=== PATIENT | male | born 1980 | race Caucasian/White ===

== ENCOUNTER → 2020-06-09 15:11 | Outpatient (BNVA) | payer OTHER, SELFPAY | PROVIDERS: Visit Provider Emergency Medicine | DX: Z11.59 Encounter for screening for other viral diseases (principal) | CPT/HCPCS: 87635 ==

== ENCOUNTER 2022-05-24 18:47 | Inpatient (IN) | payer OTHER, SELFPAY ==
[2022-05-24] VITALS (13 sets, daily range): BP systolic 95–186; BP diastolic 55–150; PULSE 86–98; RESP 13–28; TEMP 35.9–36.4; O2SAT 93–100; BMI 28.5
--- NOTE | 2022-05-24 19:05 | ED_ITS ---
HPI - Abdominal Pain General: Chief Complaint: Abdominal Pain Stated Complaint: vomiting blood and syncope Time Seen by Provider: 05/24/22 18:55 Source: patient Mode of arrival: ambulatory Limitations: no limitations History of Present Illness: 41-year-old male who states he is at work and today and then vomited up a large amount of blood and had multiple large black tarry stools and had a syncopal event. Patient came straight here he is lightheaded and diaphoretic he is hypotensive. He denies any history of GI bleed he states he takes multiple Excedrin a day he is a nondrinker no history of cirrhosis denies any chest pain or fever. Associated Symptoms: Reports hematochezia, hematemesis and melena; Denies chills, dysuria and fever(s) Review of Systems Const: Denies: fever(s), chills, body aches or change in appetite Eyes: Denies: blurry vision or eye discomfort ENMT: Denies: throat pain or dental pain Card: Denies: chest pain Resp: Denies: dyspnea GI: Reports: abdominal pain, hematemesis, hematochezia and melena : Denies: dysuria Musc: Denies: neck pain or back pain Skin/Breast: Denies: rash Neuro: Denies: headache(s) Psych: Denies: depression Ilia/Lymph: Denies: easy bruising All/Imm: Denies: urticaria PFSH ED PFSH: Medical History (Updated 05/24/22 @ 19:47 by Leonard Zepeda MD) No pertinent past medical history Social History Smoking and tobacco status: current every day smoker cigarettes Packs smoked per day: 2 Alcohol intake: never Physical Exam Const: COMMON NORMALS: patient oriented x3 GENERAL APPEARANCE: ill appearing and frail appearing HENMT: COMMON NORMALS: normocephalic and atraumatic HEAD & SCALP: normocephalic and atraumatic Eye: COMMON NORMALS: Equal, round and reactive pupils present and EOMs intact bilaterally PUPIL: Yes Equal, round and reactive pupils present Neck/C-Spine: COMMON NORMALS: full ROM and supple Chest: COMMONS NORMALS: normal inspection of the chest and normal palpation of entire chest wall Resp: COMMON NORMALS: normal respiratory effort, No retractions, No use of accessory muscles and clear to auscultation bilaterally AUSCULTATION: clear to auscultation bilaterally Cardio: COMMON NORMALS: regular rate, regular rhythm and No murmurs present (Cardio) RATE: regular rate RHYTHM: regular rhythm GI: COMMON NORMALS: Normal to inspection, nondistended, normoactive bowel sounds present, Soft to palpation, non-tender and no masses PALPATION: Yes Soft to palpation OTHER: Large amount of black tarry stool Hemoccult positive Extremity: COMMON NORMALS: normal to inspection and full ROM Neuro: COMMON NORMALS: patient oriented x3, moves all extremities and no focal motor deficits Psych: COMMON NORMALS: mental status grossly normal, Normal thought process present and cooperative THOUGHT PROCESS: Normal thought process present Skin: COMMON NORMALS: no rashes or lesions noted and no wounds GENERAL SKIN EXAM: no rashes or lesions noted Course Vital Signs: Vital signs: Vital Signs Temperature 96.7 F L 05/24/22 19:35 Pulse Rate 90 05/24/22 19:35 Respiratory Rate 14 05/24/22 19:35 Blood Pressure 107/70 05/24/22 19:35 Pulse Oximetry 99 05/24/22 19:35 Oxygen Delivery Me thod 05/24/22 19:35 MDM - Abdominal Pain Medical Decision Making Patient presents for an upper GI bleed he did not vomit blood has a large amount of melena here patient is originally hypotensive and passed out his blood pressure here is improved after fluids along with blood products. I did speak to surgeon on-call who is going to take patient to the GI lab and then will admit to ICU. Lab Data : 05/24/22 19:08 05/24/22 19:08 Labs/Radiology: Laboratory Results WBC 14.5 10^3/uL (4.0-10.0) H 05/24/22 19:08 RBC 4.62 10^6/uL (4.1-5.3) 05/24/22 19:08 Hgb 13.7 g/dL (11.7-16.6) 05/24/22 19:08 Hct 42.4 % (42.0-52.0) 05/24/22 19:08 MCV 91.8 fl (80-94) 05/24/22 19:08 MCH 29.7 pg (28.0-34.0) 05/24/22 19:08 MCHC 32.3 g/dL (30.0-36.0) 05/24/22 19:08 RDW 12.8 % (12.1-15.1) 05/24/22 19:08 Plt Count 400 10^3/cmm (130-400) 05/24/22 19:08 MPV 9.9 fL (7.4-10.4) 05/24/22 19:08 Neut % (Auto) 75.8 % 05/24/22 19:08 Lymph % (Auto) 14.7 % 05/24/22 19:08 Milam % (Auto) 6.5 % 05/24/22 19:08 Eos % (Auto) 1.2 % 05/24/22 19:08 Baso % (Auto) 0.8 % 05/24/22 19:08 Neut # (Auto) 11.02 10^3/uL (1.8-7.7) H 05/24/22 19:08 Lymph # (Auto) 2.1 10^3/uL (0.8-4.8) 05/24/22 19:08 Milam # (Auto) 0.9 10^3/uL (0.2-0.9) 05/24/22 19:08 Eos # (Auto) 0.2 10^3/uL (0.0-0.8) 05/24/22 19:08 Baso # (Auto) 0.1 10^3/uL (0.0-0.1) 05/24/22 19:08 Nucleated RBC % (auto) 0 % 05/24/22 19:08 Nucleated RBCs # 0.0 /100WBC 05/24/22 19:08 PT 13.70 SECONDS (12.1-14.9) 05/24/22 19:08 INR 1.02 (0.8-1.2) 05/24/22 19:08 Sodium 139 mmol/L (136-145) 05/24/22 19:08 Potassium 4.4 mmol/L (3.5-5.1) 05/24/22 19:08 Chloride 101 mmol/L (98-107) 05/24/22 19:08 Carbon Dioxide 24 mmol/L (22-29) 05/24/22 19:08 Anion Gap 18.4 (5-19) 05/24/22 19:08 BUN 32 mg/dL (6-20) H 05/24/22 19:08 Creatinine 1.3 mg/dL (0.7-1.2) H 05/24/22 19:08 GFR Calculation 60.8 mL/min (90-130) L 05/24/22 19:08 Glucose 150 mg/dL (65-115) H 05/24/22 19:08 Calculated Osmolality 298 mOsm/kg (285-295) H 05/24/22 19:08 Calcium 10.9 mg/dL (8.5-10.5) H 05/24/22 19:08 Total Bilirubin 0.3 mg/dL (0.15-1.2) 05/24/22 19:08 AST 13 U/L (0-40) 05/24/22 19:08 ALT 9 U/L (0-41) 05/24/22 19:08 Alkaline Phosphatase 74 U/L (40-130) 05/24/22 19:08 Total Protein 7.2 g/dL (6.6-8.7) 05/24/22 19:08 Albumin 4.0 g/dL (3.5-5.2) 05/24/22 19:08 Globulin 3.2 g/dL (1.3-4.6) 05/24/22 19:08 Lipase 25 U/L (13-60) 05/24/22 19:08 Critical Care Time Critical Care Time: Critical Care Time: Yes Total Critical Care Time: 40 Attestation: The high probability of a clinically significant, sudden or life threatening deterioration of the patient's gi system(s) required my full and direct attention, intervention and personal management. The critical care time is as shown. 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
--- NOTE | 2022-05-24 19:08 | ECG_ITS ---
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 Measurements Intervals [place] Rate: 92 P: 23 MT: 146 QRS: 70 QRSD: 86 T: 56 QT: 335 QTc: 415 Interpretive Statements SINUS RHYTHM No previous ECG available for comparison Electronically Signed On 05-25-2022 5:25:24 MEASUREMENT DEPARTMENT CHIEF CLERK by Catherine Garcia M.D. [id number]
[2022-05-24] MEDS: pantoprazole 40 mg SDV 80 MG IVP (19:12)
[2022-05-24] MEDS: sodium chloride 0.9% 1,000 ML 999 ML IV (19:12)
[2022-05-24 19:26] LABS: Basophils # 0.1 10^3/uL (0.0-0.1); Basophils % 0.8 %; Eosinophils # 0.2 10^3/uL (0.0-0.8); Eosinophils % 1.2 %; Hematocrit 42.4 % (42.0-52.0); Hemoglobin 13.7 g/dL (11.7-16.6); Lymphocytes # 2.1 10^3/uL (0.8-4.8); Lymphocytes % 14.7 %; Mean Corpuscular HGB Conc 32.3 g/dL (30.0-36.0); Mean Corpuscular Hemoglobin 29.7 pg (28.0-34.0); Mean Corpuscular Volume 91.8 fl (80-94); Mean Platelet Volume 9.9 fL (7.4-10.4); Monocytes # 0.9 10^3/uL (0.2-0.9); Monocytes % 6.5 %; Neutrophils # 11.02 10^3/uL (1.8-7.7); Neutrophils % 75.8 %; Nucleated Red Blood Cells % 0 %; Platelet Count 400 10^3/cmm (130-400); Red Blood Count 4.62 10^6/uL (4.1-5.3); Red Cell Distribution Width 12.8 % (12.1-15.1); White Blood Count 14.5 10^3/uL (4.0-10.0)
[2022-05-24 19:36] LABS: INR 1.02 (0.8-1.2)
--- NOTE | 2022-05-24 19:36 | PM.CONSULT ---
Providers/Reason For Consult Consulting Physician/Specialty*: General Surgery Vikas Aparicio MD, FACS, RPVI Reason for Consult*: GI bleeding, nausea vomiting Attending Physician: Vikas Aparicio MD History of Present Illness History of Present Illness Nguyễn Adrian is a 41 year old male Who presented to the emergency room complaining of generalized weakness, vomiting blood, black stool. He was taking a lot of ibuprofen and Excedrin for terrible headaches over the last several month. He never went to a primary care physician to evaluate the reason for his headaches. He noticed some vague upper abdominal discomfort and pain over the last several days. Today all of a sudden he felt very dizzy and according to his son witnessed passed out for short period of time. Upon regaining his consciousness he continues to feel very weak and started vomiting blood multiple times. He vomited a lot per his . He went immediately to seek medical attention. He arrived to the emergency room hypotensive with blood pressure in 80s. He was given fluid bolus and blood transfusion initiated with immediate improvement in the blood pressure to 115/75 at the time of my interview. Heart rate was 90. Denies any other medical problems other than headaches. History of open appendectomy. He is healthy otherwise and is able to walk a mile without any problems. 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 Review of Systems Narrative: 10 point review of systems is negative except as per HPI Medications/Allergies Home Medications Medication Instructions Recorded Confirmed Last Taken Type No Known Home Medications 06/09/20 06/09/20 Unknown History Allergies Allergy/AdvReac Type Severity Reaction Status Date / Time No Known Allergies Allergy Verified 05/24/22 18:57 Current Medications Generic Name Dose Route Start Last Admin Trade Name Freq PRN Reason Stop Dose Admin Sodium Chloride 1,000 mls @ 999 mls/hr 05/24/22 18:57 05/24/22 19:12 Sodium Chloride 0.9% IV 05/24/22 19:57 999 mls/hr .Q1H1M ONE Administration PFSH Acute PFSH: Medical History (Updated 05/24/22 @ 20:02 by Vikas Aparicio MD) No pertinent past medical history Social History Smoking and tobacco status: current every day smoker cigarettes Packs smoked per day: 2 Alcohol intake: never Vitals/I&O/Wt Last Vital Signs Temp 96.7 F L 05/24/22 19:35 Pulse 90 05/24/22 19:35 Resp 14 05/24/22 19:35 BP 107/70 05/24/22 19:35 Pulse Ox 99 05/24/22 19:35 O2 Del Method 05/24/22 19:35 Weight last 48 hrs Weight 210 lb Physical Exam Narrative: General: No acute distress Psych: [AAOx3] Eyes: [sclerae are white] Head/ENT: [normocephalic, symmetric] CV: [regular] pulse, [], no JVD Lungs: [symmetrical chest rise] Abdomen: [soft, ND, mild tenderness to palpation in the upper epigastrium. No peritoneal signs. No palpable masses. No hernias.] Ext: [no obvious traumatic deformities] Skin: warm Data : 05/24/22 19:08 05/24/22 19:08 A&P Assessment and plan (1) GI bleed: (2) Headache: (3) Hemorrhagic shock: Plan The patient presented in hemorrhagic shock secondary to GI bleeding. He responded well to resuscitation with fluids and blood. The results of the labs are pending, hemoglobin is normal, I think it did not have time to respond by hemodilution after the patient bled. Plan to proceed with emergent EGD, hemostasis, all other indicated procedures. Risks and benefits of upper GI endosdcopy were discussed with the patient [], inlcuding bleeding, damage to surrounding structures/tissue, perforation, aspiration, complications related to sedation and anesthesia. The patient agreed to proceed with an EGD and all other indicated procedures and signed an informed consent. All questions were answered. I also discussed with the patient and his that I will perform EGD under general anesthesia. In case I cannot control the bleeding and it continues at a severe rate, I will proceed with exploratory laparotomy and surgical hemostasis at the same time. I will obviously communicate this to the patient's , however, there is no reason to wake up the patient extubate him and then put him back to sleep. The patient and his agreed. We discussed possible complications related to laparotomy and hemostasis including infection, bleeding, incisional hernia, damage to surrounding tissue, duodenal stump leak, anastomotic leak, blood clots, poor healing, wound dehiscence. The patient agreed to proceed with surgery if indicated. History of disabling headaches for several months. Origin is not clear. I will defer work-up to medicine. May benefit from cross-sectional imaging of some sort after her acute issues resolved. -N.p.o., Protonix drip, Reglan IV, lactate, repeat CBC and lactate in 6 hours. -Admit to ICU -Emergent GI endoscopy. GI team and anesthesia are coming to the hospital for emergent endoscopy in the operating room. Coding Level of Care Code Acute Wound Specialist for g Fwd Diagnoses GI bleed K92.2 Headache R51.9 Hemorrhagic shock R57.8
[2022-05-24 19:38] LABS: Alanine Aminotransferase 9 U/L (0-41); Alkaline Phosphatase 74 U/L (40-130); Blood Urea Nitrogen 32 mg/dL (6-20); Calcium 10.9 mg/dL (8.5-10.5); Carbon Dioxide 24 mmol/L (22-29); Chloride 101 mmol/L (98-107); Creatinine Clr Calc Pharmacy 89.5459; Globulin 3.2 g/dL (1.3-4.6); Glomerular Filtration Rate 60.8 mL/min (90-130); Glucose 150 mg/dL (65-115); Lipase 25 U/L (13-60); Osmolality Calculated 298 mOsm/kg (285-295); Sodium 139 mmol/L (136-145); Total Bilirubin 0.3 mg/dL (0.15-1.2); Total Protein 7.2 g/dL (6.6-8.7)
[2022-05-24 19:41] LABS: Anion Gap 18.4 (5-19); Aspartate Amino Transferase 13 U/L (0-40); Potassium 4.4 mmol/L (3.5-5.1)
--- NOTE | 2022-05-24 20:06 | PM.HP ---
Providers/Chief Complaint Chief Complaint: vomiting blood and syncope History of Present Illness Pleasant 41-year-old gentleman without significant past medical history had a syncopal episode today followed by hematemesis, has had also multiple melanotic bowel movements. Hypotensive on arrival. In ER noted with mild sinus tachycardia intermittently into 90s blood pressure reported eventually in the 80s systolic. So far spondee well to resuscitation, up to 107/70. He has been having about 3 days or so of upper abdominal pain/discomfort above the umbilicus. He has taken Excedrin for headaches and aches and pains and also takes ibuprofen. Does not drink alcohol. Lipase is not elevated. Hemoglobin 13.7. BUN 32. Creatinine 1.3. He is receiving RBC transfusion. He is also being evaluated by surgery. Review of Systems Const: Denies: fever(s), chills, body aches or malaise Eyes: Denies: change in vision, eye discomfort or eye redness ENMT: Denies: throat pain, oral sores or ear or mastoid pain Card: Denies: chest pain, edema, pre-syncope or dyspnea on exertion Resp: Denies: dyspnea, productive cough, change in phlegm color or hemoptysis GI: Denies: abdominal pain, nausea, vomiting, diarrhea, constipation, hematochezia or melena : Denies: flank pain, difficulty urinating, urinary frequency or hematuria Musc: Denies: back pain, joint swelling or joint redness Skin/Breast: Denies: rash or new lesions Neuro: Reports: headache(s); Denies: numbness in extremities, weakness in extremities, dizziness, confusion or seizure-like activity Endo: Denies: polyuria or polydipsia Ilia/Lymph: Denies: easy bleeding or tender lymph nodes All/Imm: Denies: urticaria or tongue swelling Medications/Allergies Home Medications Medication Instructions Recorded Confirmed Last Taken Type No Known Home Medications 06/09/20 06/09/20 Unknown History Allergies Allergy/AdvReac Type Severity Reaction Status Date / Time No Known Allergies Allergy Verified 05/24/22 18:57 PFSH Acute PFSH: Medical History No pertinent past medical history Surgical History History of appendectomy Family History Other Cancer Diabetes Social History Smoking and tobacco status: current every day smoker cigarettes Packs smoked per day: 2 Alcohol intake: never Lives independently: Yes Marital status: Vitals/I&O/Wt Last Vital Signs Temp 96.7 F L 05/24/22 19:35 Pulse 90 05/24/22 19:35 Resp 14 05/24/22 19:35 BP 107/70 05/24/22 19:35 Pulse Ox 99 05/24/22 19:35 O2 Del Method 05/24/22 19:35 Weight last 48 hrs Weight 95.254 kg Physical Exam Narrative: Accompanied by his . Const: COMMON NORMALS: patient oriented x3 and alert GENERAL APPEARANCE: cooperative ORIENTATION/CONSCIOUSNESS: Yes awake OTHER: Dried perioral secretions with blood. HENMT: COMMON NORMALS: oropharynx normal Neck/C-Spine: COMMON NORMALS: no JVD Resp: COMMON NORMALS: normal respiratory effort and clear to auscultation bilaterally AUSCULTATION: clear to auscultation bilaterally Cardio: COMMON NORMALS: no JVD, regular rhythm, S1 normal heart sound present, S2 normal heart sound present and No murmurs present (Cardio) RHYTHM: regular rhythm HEART SOUNDS: S1 normal heart sound present and S2 normal heart sound present GI: COMMON NORMALS: Normal to inspection, nondistended, normoactive bowel sounds present, Soft to palpation and non-tender PALPATION: Yes Soft to palpation Extremity: COMMON NORMALS: no joint enlargement and no pedal edema Neuro: COMMON NORMALS: patient oriented x3 and moves all extremities SENSORIUM/ORIENTATION: Yes alert Skin: COMMON NORMALS: no rashes or lesions noted GENERAL SKIN EXAM: no rashes or lesions noted Data : 05/24/22 19:08 05/24/22 19:08 A&P Assessment and plan (1) GI bleed: Receiving RBC transfusion. Continue PPI infusion. Antiemetic as needed, pain control as needed. Reassess blood counts at interval. Being evaluated by surgery, plans for endoscopic evaluation appreciated. Qualifiers: GI bleed type/associated pathology: melena Qualified Code(s): K92.1 - Melena (2) Hemorrhagic shock: So far responding well to resuscitation. Received fluid challenge with NS bolus, received blood transfusions. Monitor vital signs. (3) EVERARDO (acute kidney injury): Received fluid challenge with NS. Suspect may be combination prerenal secondary to hypotension, additionally takes Excedrin and ibuprofen. Avoid NSAIDs. (4) Headache: Has been taking Excedrin and ibuprofen for headaches and aches and pains. Recurrent headache may benefit from further evaluation, follow-up. Attestations Medical Necessity Statement*: Admission of over 2 midnights anticipated for assessment of management of GI bleeding with hemorrhagic shock, EVERARDO Coding Level of Care Code Acute Warehouse Shipping Clerk for [facility] Diagnoses GI bleed K92.1 GI bleed type/associated pathology: melena Hemorrhagic shock R57.8 EVERARDO (acute kidney injury) N17.9 Headache R51.9
--- NOTE | 2022-05-24 20:15 | PC.NURSE ---
Bedside report given to surgery RN. Patient escorted to surgery by nurses. Patient awake and alert at time of transfer. at bedside.
[2022-05-24] MEDS: sodium chloride 0.9% 1,000 ML 30 ML IV (20:30)
[2022-05-24] MEDS: EPINEPHrine 1 mg/mL INJ XX (21:22)
--- NOTE | 2022-05-24 21:23 | ANES.PREANE2 ---
Pre-Anesthetic Assessment Height/Weight: Height 1.83 m Weight 95.254 kg Temp Pulse Resp BP Pulse Ox O2 Del Method 97.4 F L 87 16 123/71 100 05/24/22 20:30 05/24/22 20:30 05/24/22 20:30 05/24/22 20:30 05/24/22 20:30 05/24/22 20:30 Preop Diagnosis: Upper GI bleeding Operation Date: 05/24/22 08:30 Proposed Procedures p EGD(Not Applicable) - Vikas Aparicio MD Familial anesthetic complications: none Was Beta Pablo taken within 24 hours: N/A Was Clonidine taken within 24 hours: N/A Social No alcohol and No tobacco Exam alert, oriented x 3, clear to auscultation bilaterally and regular rate & rhythm Airway Submandibular: within normal limits Cervical ROM: within normal limits Mallampati: Class II Dentition: full Comments: Comments: Overbite GI GI bleed--transfused in ED Anesthetic Plan ASA status: 2E Anesthesia: General (RSI) Medications/Allergies Home Medications Medication Instructions Recorded Confirmed Last Taken Type No Known Home Medications 06/09/20 06/09/20 Unknown History Allergies Allergy/AdvReac Type Severity Reaction Status Date / Time No Known Allergies Allergy Verified 05/24/22 18:57 Current Medications Generic Name Dose Route Start Last Admin Trade Name Yury PRN Reason Stop Dose Admin Epinephrine HCl 1 mg 05/24/22 21:19 05/24/22 21:22 Epinephrine 1 Mg/Ml Inj XX 05/24/22 21:20 1 mg ONCE ONE Administration Sodium Chloride 1,000 mls @ 30 mls/hr 05/24/22 21:00 05/24/22 20:30 Sodium Chloride 0.9% IV 05/25/22 20:59 30 mls/hr .Q24H MILLICENT Administration PFSH Anesthesia Medical History No pertinent past medical history Surgical History History of appendectomy Family History Other Cancer Diabetes Social History Smoking and tobacco status: current every day smoker cigarettes Packs smoked per day: 2 Alcohol intake: never Lives independently: Yes Marital status: Data Anesthesia : 05/24/22 19:08 05/24/22 19:08 Short CBC 05/24/22 Range/Units 19:08 WBC 14.5 H (4.0-10.0) 10^3/uL Hgb 13.7 (11.7-16.6) g/dL Hct 42.4 (42.0-52.0) % MCV 91.8 (80-94) fl Plt Count 400 (130-400) 10^3/cmm Neut % (Auto) 75.8 % Neut # (Auto) 11.02 H (1.8-7.7) 10^3/uL BMP 05/24/22 19:08 Sodium 139 Potassium 4.4 Chloride 101 Carbon Dioxide 24 BUN 32 H Creatinine 1.3 H Glucose 150 H Calcium 10.9 H Liver Function 05/24/22 Range/Units 19:08 Total Bilirubin 0.3 (0.15-1.2) mg/dL AST 13 (0-40) U/L ALT 9 (0-41) U/L Alkaline Phosphatase 74 (40-130) U/L Albumin 4.0 (3.5-5.2) g/dL Blood Bank 05/24/22 19:08 Blood Type O Positive Rho(D) Type Positive Antibody Screen Negative Coags 05/24/22 19:08 PT 13.70 INR 1.02 Cardiac Studies: No Data to Display
[2022-05-24] MEDS: EPINEPHrine 1 mg/mL INJ (21:44)
--- NOTE | 2022-05-24 22:00 | P.PN_ITS ---
Subjective Subjective: Full op note to follow. Briefly, the patient has a large deep ulcer, postpyloric, fresh clot in the ulcer with some oozing from underneath. Epinephrine injected, 12 ml in total all around the ulcer. 2 clips were placed, one lateral to the ulcer and 1 to the clot in the middle of the ulcer. There was mild oozing after the placement of the second clip which was controlled with additional injections of epinephrine. By the end of the procedure there was good hemostasis with no active bleeding. -Continue Protonix drip, will start Carafate p.o., 4 times a day. Vitals/I&O/Wt Last Vital Signs Temp 97.4 F L 05/24/22 20:30 Pulse 87 05/24/22 20:30 Resp 16 05/24/22 20:30 BP 123/71 05/24/22 20:30 Pulse Ox 100 05/24/22 20:30 O2 Del Method 05/24/22 20:30 Weight last 48 hrs Weight 210 lb Data : 05/24/22 19:08 05/24/22 19:08 Attestations Medical Necessity Statement*: Bleeding duodenal ulcer Coding Level of Care Code Acute Clinical Rehabilitation Liaison for Claritza Welsh
[2022-05-24 23:04] LABS: Hematocrit 41.5 % (42.0-52.0); Hemoglobin 13.5 g/dL (11.7-16.6)
[2022-05-24 23:18] LABS: Lactate (Lactic Acid level) 1.8 mmol/L (0.5-2.2)
[2022-05-24] MEDS: pantoprazole 40 MG in sodium chloride 0.9% (plus) 100 ML 20 MG IV (23:30)
[2022-05-25] VITALS (39 sets, daily range): BP systolic 121–156; BP diastolic 70–94; PULSE 79–101; RESP 9–24; TEMP 36.6–37; O2SAT 93–99
--- NOTE | 2022-05-25 00:07 | PM.PN ---
Subjective Subjective: Chart was reviewed and the patient care was discussed with the bedside nurse. The patient is doing well, hemodynamically normal and stable. No more vomiting. Hemoglobin remains stable. Lactate normal. No evidence of ongoing bleeding. We will continue Protonix drip, Carafate, lactated Ringer's at 150. We will repeat labs at 4:00 in the morning. Vitals/I&O/Wt Last Vital Signs Temp 97.4 F L 05/24/22 20:30 Pulse 87 05/24/22 20:30 Resp 16 05/24/22 20:30 BP 123/71 05/24/22 20:30 Pulse Ox 100 05/24/22 20:30 O2 Del Method 05/24/22 22:38 Weight last 48 hrs Weight 210 lb Data : 05/24/22 22:52 05/24/22 19:08 Attestations Medical Necessity Statement*: Acute GI bleed Coding Level of Care Code Acute Geodetic Technician for Claritza Welsh
[2022-05-25] MEDS: lactated ringers 1,000 ML 150 ML IV ×2 (00:56→08:08)
[2022-05-25] MEDS: acetaminophen 1,000 MG/100 ML PIGGYBACK 400 MG IV (02:18)
[2022-05-25 04:10] LABS: Hematocrit 39.5 % (42.0-52.0); Hemoglobin 13.1 g/dL (11.7-16.6)
[2022-05-25 04:29] LABS: Alanine Aminotransferase 9 U/L (0-41); Albumin Level 3.7 g/dL (3.5-5.2); Alkaline Phosphatase 64 U/L (40-130); Anion Gap 16.2 (5-19); Aspartate Amino Transferase 10 U/L (0-40); Blood Urea Nitrogen 29 mg/dL (6-20); Calcium 9.3 mg/dL (8.5-10.5); Carbon Dioxide 21 mmol/L (22-29); Chloride 104 mmol/L (98-107); Globulin 2.6 g/dL (1.3-4.6); Glucose 121 mg/dL (65-115); Osmolality Calculated 291 mOsm/kg (285-295); Potassium 4.2 mmol/L (3.5-5.1); Sodium 137 mmol/L (136-145); Total Bilirubin 0.4 mg/dL (0.15-1.2); Total Protein 6.3 g/dL (6.6-8.7)
[2022-05-25 04:38] LABS: Lactate (Lactic Acid level) 0.7 mmol/L (0.5-2.2)
[2022-05-25] MEDS: sucralfate 1 gm/10 mL Oral Liq UDC PO ×3 (05:42→20:58)
--- NOTE | 2022-05-25 08:18 | ANE.PACU2 ---
Inpatient post-anesthesia follow up: Airway intact: Yes Vital signs: Temperature 98.3 F Pulse Rate 94 Respiratory Rate 19 Blood Pressure 123/70 Pulse Oximetry 96 Oxygen Delivery Me thod Nasal Cannula Oxygen Flow Rate Fraction of Inspir ed Oxygen Hydration adequate: Yes Nausea and vomiting: No Pain level: 2 Mental status: Baseline
[2022-05-25] MEDS: morphine 4 mg/mL SDV 1 mL 2 MG IVP (09:00)
--- NOTE | 2022-05-25 10:28 | XR_ITS ---
WS: [id number] Abdomen series, Flat and upright 05/25/2022 Clinical Data: Abdominal pain Comparison: None. Findings: No free air is seen beneath the diaphragms. No abnormal intra-abdominal masses or calcifica tions are seen. There is a large amount of air throughout the colon. No dilated small bowel is seen. There is a monitor lead on the left abdominal wall. XR/XR abdomen min 2V [id number] Impression: Moderate generalized ileus.
--- NOTE | 2022-05-25 10:31 | P.PN_ITS ---
Subjective Subjective: No acute events overnight. No more episodes of vomiting. Continues to have melena as expected. Hemoglobin remains stable. Lactate was normal. He continues to have abdominal pain. It is not localized to the epigastrium anymore and he describes it as diffuse in the upper abdomen. It is different from the pain that he had before the procedure. Vitals/I&O/Wt Last Vital Signs Temp 98.3 F 05/25/22 06:15 Pulse 94 05/25/22 07:15 Resp 20 H 05/25/22 09:00 BP 123/70 05/25/22 07:15 Pulse Ox 95 05/25/22 09:00 O2 Del Method 05/24/22 22:38 05/24/22 05/25/22 05/25/22 22:59 06:59 14:59 Intake Total 200 / 200 1000 / 1000 Output Total 1200 / 1200 Balance -1000 / -1000 1000 / 1000 Weight last 48 hrs Weight 222 lb 6 oz Weight 210 lb Physical Exam Narrative: General: No acute distress Psych: [AAOx3] Eyes: [sclerae are white] Head/ENT: [normocephalic, symmetric] CV: [regular] pulse, [], no JVD Lungs: [symmetrical chest rise] Abdomen: [soft, ND, mild tenderness to palpation in the upper epigastrium, slightly. more than yesterday No peritoneal signs. No palpable masses. No hernias.] Ext: [no obvious traumatic deformities] Skin: warm Data : 05/25/22 03:10 05/25/22 03:10 A&P Assessment and plan (1) GI bleed: Qualifiers: GI bleed type/associated pathology: melena Qualified Code(s): K92.1 - Melena (2) Headache: (3) Hemorrhagic shock: Plan No evidence of recurrent bleeding. Given that he is doing so well, I do not see indications for routine second look endoscopy today. We will continue to monitor him closely and repeat endoscopy in case there is any suspicion for recurrent bleeding. I will order abdominal x-ray to better evaluate his abdominal pain. I did not use any thermal probes, chances of duodenal perforation very low. However, if continues to have pain, I will order abdominal CT scan to better evaluate the pain. Okay to get out of bed, shower, sit in the chair. Continue Protonix drip, Carafate, okay for clear liquid diet today. CBC at 12:00 Will keep in ICU today given hemorrhagic shock on admission. If he is doing well, will transfer to the floor tomorrow. 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
[2022-05-25] MEDS: lidocaine 2% viscous 15 ML, aluminum-mag hydrox-simethicon 30 ML, sucralfate oral liq 1 GM PO (10:50)
[2022-05-25 12:27] LABS: Basophils % 0.3 %; Eosinophils % 0.2 %; Hematocrit 39.1 % (42.0-52.0); Hemoglobin 13.1 g/dL (11.7-16.6); Lymphocytes # 1.5 10^3/uL (0.8-4.8); Lymphocytes % 12.7 %; Mean Corpuscular HGB Conc 33.5 g/dL (30.0-36.0); Mean Corpuscular Hemoglobin 30.2 pg (28.0-34.0); Mean Corpuscular Volume 90.1 fl (80-94); Mean Platelet Volume 10.2 fL (7.4-10.4); Monocytes % 8.4 %; Neutrophils # 9.29 10^3/uL (1.8-7.7); Neutrophils % 77.8 %; Nucleated Red Blood Cells % 0 %; Platelet Count 258 10^3/cmm (130-400); Red Blood Count 4.34 10^6/uL (4.1-5.3); Red Cell Distribution Width 13.2 % (12.1-15.1); White Blood Count 11.9 10^3/uL (4.0-10.0)
--- NOTE | 2022-05-25 12:56 | PM.PN ---
Subjective Subjective: Duodenal erosions Patient is currently on a liquid diet He was complaining of abdominal pain after endoscopy It could be related to the gas Given IV stable Hemoglobin stable H&H at 1600 Vitals/I&O/Wt Last Vital Signs Temp 98.3 F 05/25/22 06:15 Pulse 94 05/25/22 07:15 Resp 20 H 05/25/22 09:00 BP 123/70 05/25/22 07:15 Pulse Ox 95 05/25/22 09:00 O2 Del Method 05/24/22 22:38 05/24/22 05/25/22 05/25/22 22:59 06:59 14:59 Intake Total 200 / 200 1392.5 / 1392.5 Output Total 1200 / 1200 Balance -1000 / -1000 1392.5 / 1392.5 Weight last 48 hrs Weight 100.868 kg Weight 95.254 kg Physical Exam Narrative: Patient is awake and alert however drowsy from anesthesia after endoscopy Hemodynamically stable Complaining abdominal pain abdomen is soft nontender lightly distended Bowel sound present Lower extremity no edema Family at the bedside S1, S2 Currently 2 L nasal cannula Data : 05/25/22 12:10 05/25/22 03:10 A&P Assessment and plan (1) EVERARDO (acute kidney injury): (2) Hemorrhagic shock: (3) Headache: (4) GI bleed: Qualifiers: GI bleed type/associated pathology: melena Qualified Code(s): K92.1 - Melena Plan Upper GI bleed Hemorrhagic shock: Resolved Transfer out of ICU Currently he is on regular diet Abdominal distention related to the gas inflated during endoscopy Monitor for now Repeat H&H at 1600 DVT prophylaxis with SCDs Diet advance as per general surgery today In case of further drop in hemoglobin second look endoscopy could be pursued however his current abdominal pain seems related to gas inflation Attestations Medical Necessity Statement*: Transfer out of ICU Time Spent in Patient Care: 30 Coding Level of Care Code 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
[2022-05-25] MEDS: pantoprazole 40 mg SDV IVP (14:03)
[2022-05-25 16:03] LABS: Hematocrit 39.5 % (42.0-52.0); Hemoglobin 12.7 g/dL (11.7-16.6)
[2022-05-25 16:23] LABS: Lactate (Lactic Acid level) 0.7 mmol/L (0.5-2.2)
[2022-05-25 20:02] LABS: Basophils # 0.1 10^3/uL (0.0-0.1); Basophils % 0.6 %; Eosinophils % 0.3 %; Hematocrit 42.5 % (42.0-52.0); Hemoglobin 12.7 g/dL (11.7-16.6); Lymphocytes % 16.3 %; Mean Corpuscular HGB Conc 29.9 g/dL (30.0-36.0); Mean Corpuscular Hemoglobin 30.2 pg (28.0-34.0); Mean Corpuscular Volume 101.2 fl (80-94); Mean Platelet Volume 10.4 fL (7.4-10.4); Monocytes # 1.2 10^3/uL (0.2-0.9); Monocytes % 9.8 %; Neutrophils # 8.69 10^3/uL (1.8-7.7); Neutrophils % 72.6 %; Nucleated Red Blood Cells % 0 %; Platelet Count 292 10^3/cmm (130-400); Red Cell Distribution Width 13.2 % (12.1-15.1)
[2022-05-25 20:58] LABS: Slide Review Slide Review Perform
[2022-05-25] MEDS: lactated ringers 1,000 ML 50 ML IV (21:01)
[2022-05-26] VITALS (7 sets, daily range): BP systolic 112–126; BP diastolic 65–77; PULSE 77–90; RESP 16–18; TEMP 36.6–36.8; O2SAT 94–98
--- NOTE | 2022-05-26 | USCV_ITS ---
Nguyễn Adrian Age: 41 Gender: M : 1980 Exam Date: 05/26/2022 11:03 Ordering Phys: Mali Lee MD Technologist: Mari Holland [place]am [place] [facility] [place]: syncope, bleeding ulcer BP: 116 / 77 HR: 74 Rhythm: Sinus Technical Quality: Good MEASUREMENTS (Male / Female) Normal Values 2D ECHO LV Diastolic Diameter PLAX 4.2 cm 4.2 - 5.9 / 3.9 - 5.3 cm LV Systolic Diameter PLAX 2.6 cm IVS Diastolic Thickness 0.9 cm 0.6 - 1.0 / 0.6 - 0.9 cm IVS Systolic Thickness 1.2 cm LVPW Diastolic Thickness 1.2 cm 0.6 - 1.0 / 0.6 - 0.9 cm LVPW Systolic Thickness 1.6 cm LVOT Diameter 2.2 cm LV Ejection Fraction 2D Teich 68.6 % LV Ejection Fraction MOD 2C 62.0 % LV Ejection Fraction 2C AL 62.8 % LA Diameter 3.0 cm LA Width 3.7 cm LA Height 4.3 cm RA Width 3.5 cm RA Height 4.3 cm Aorta at Sinotubular Diameter 3.7 cm IVC Diameter 1.2 cm M-MODE MV E Point Septal Separation 0.2 cm DOPPLER AV Peak Velocity 157.0 cm/s LVOT Peak Velocity 120.0 cm/s AV Area Cont Eq vti 3.9 cm squared AV Area Cont Eq pk 2.9 cm squared MV Peak Velocity 90.0 cm/s MV E' Velocity 13.0 cm/s TR Peak Velocity 90.5 cm/s TR Peak Gradient 3.3 mmHg Right Atrial Pressure 3.0 mmHg Pulmonary Artery Systolic Pressu 6.3 mmHg PV Peak Velocity 137.0 cm/s RV Acceleration Time 0.1 s RV Ejection Time 0.3 s RV AcT/ET 0.2 FINDINGS Left Ventricle Normal left ventricular no regional wall motion abnormalities. size and systolic function, EF 67 %. Right Ventricle The right ventricle is normal in size and function. Right Atrium The right atrium is normal in size. Left Atrium The left atrium is normal in size. Mitral Valve No gross abnormalities noted Aortic Valve No gross abnormalities noted Tricuspid Valve No gross abnormalities noted Pulmonic Valve No gross abnormalities noted Pericardium Normal pericardium without effusion. Aorta Normal aortic annulus size. IVC Normal inferior vena cava. CONCLUSIONS Normal left ventricular no regional wall motion abnormalities. size and systolic function, EF 67 %. Normal cardiac chamber sizes. No significant stenotic or relative lesions. No intracardiac masses. No pericardial effusion. No similar previous studies are available for comparison Dr Sina Pritchett MD FAC (Electronically Signed) Final Date: 26 May 2022 21:16 S
[2022-05-26] MEDS: pantoprazole 40 mg SDV IVP ×2 (00:52→12:57)
[2022-05-26] MEDS: sucralfate 1 gm/10 mL Oral Liq UDC PO ×3 (04:19→22:31)
[2022-05-26 05:48] LABS: Basophils # 0.1 10^3/uL (0.0-0.1); Basophils % 0.7 %; Eosinophils # 0.1 10^3/uL (0.0-0.8); Eosinophils % 0.7 %; Hematocrit 40.3 % (42.0-52.0); Lymphocytes % 19.1 %; Mean Corpuscular HGB Conc 32.3 g/dL (30.0-36.0); Mean Corpuscular Hemoglobin 29.8 pg (28.0-34.0); Mean Corpuscular Volume 92.4 fl (80-94); Mean Platelet Volume 9.9 fL (7.4-10.4); Monocytes # 0.9 10^3/uL (0.2-0.9); Monocytes % 8.5 %; Neutrophils # 7.52 10^3/uL (1.8-7.7); Neutrophils % 70.5 %; Nucleated Red Blood Cells % 0 %; Platelet Count 322 10^3/cmm (130-400); Red Blood Count 4.36 10^6/uL (4.1-5.3); Red Cell Distribution Width 12.9 % (12.1-15.1); White Blood Count 10.7 10^3/uL (4.0-10.0)
[2022-05-26 06:17] LABS: Alanine Aminotransferase 10 U/L (0-41); Albumin Level 3.9 g/dL (3.5-5.2); Alkaline Phosphatase 68 U/L (40-130); Anion Gap 15.7 (5-19); Aspartate Amino Transferase 13 U/L (0-40); Blood Urea Nitrogen 16 mg/dL (6-20); Calcium 9.1 mg/dL (8.5-10.5); Carbon Dioxide 22 mmol/L (22-29); Chloride 104 mmol/L (98-107); Creatinine Clr Calc Pharmacy 149.5663; Globulin 2.8 g/dL (1.3-4.6); Glomerular Filtration Rate 106.5 mL/min (90-130); Glucose 95 mg/dL (65-115); Osmolality Calculated 287 mOsm/kg (285-295); Potassium 3.7 mmol/L (3.5-5.1); Sodium 138 mmol/L (136-145); Total Bilirubin 0.6 mg/dL (0.15-1.2); Total Protein 6.7 g/dL (6.6-8.7)
[2022-05-26 07:27] LABS: Lactate (Lactic Acid level) 0.8 mmol/L (0.5-2.2)
--- NOTE | 2022-05-26 07:43 | XRR_ITS ---
PROCEDURE INFORMATION: Exam: XR Abdomen Exam date and time: 05/26/2022 7:52 AM Age: 41 years old Clinical indication: Condition or disease; Intestinal condition; Other: Ileus; Prior surgery; Surgery date: Post-operative (0-2 days); Surgery type: Not specified TECHNIQUE: Imaging protocol: Radiologic exam of the abdomen. Views: Frontal supine view of the abdomen. 1 View. COMPARISON: CR XR abdomen min 2V [id number] 05/25/2022 10:38 AM FINDINGS: Gastrointestinal tract: Normal. No bowel dilation. Bones/joints: Unremarkable. XR/XR KUB portable [id number] IMPRESSION: No acute findings.
[2022-05-26] MEDS: TRAMadol 50 mg Tablet 100 MG PO ×2 (07:59→19:40)
--- NOTE | 2022-05-26 08:07 | PM.DCS ---
Discharge Providers Date of Admission: 05/24/22 22:26 Date of Discharge: May 26, 2022 Attending Provider at Admission: Vikas Aparicio MD Attending Provider at Discharge: Mali Lee MD Diagnoses at Discharge Discharge Diagnosis (1) EVERARDO (acute kidney injury): Status: Acute (2) Hemorrhagic shock: Status: Acute (3) Headache: Status: Acute (4) GI bleed: Status: Acute Qualifiers: GI bleed type/associated pathology: melena Qualified Code(s): K92.1 - Melena Reason for Visit Reason for Visit: vomiting blood and syncope Hospital Course Hospital Course Patient presented after experiencing an syncopal event with a 1 episode of hematemesis. His hemoglobin remained stable throughout hospitalization he remained hemodynamically stable. General surgery was consulted for endoscopy. EGD revealed large ulcer in pyloric channel 2 x 1 cm by half centimeter deep with fresh blood clot over it epinephrine was injected and then 2 clips were applied. Anoscopy patient was complaining of abdominal pain which was related to gas inflation during endoscopy. KUB did show ileus however it resolved he is tolerating his diet passing gas. He will get 12 weeks of Protonix and sucralfate he was counseled not to take aspirin, Excedrin. H. pylori biopsy has been taken we will follow-up with the results. Etiology is use of NSAIDs. 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 does endorse that he snores a lot, I requested him to follow-up with the PCP for sleep study Physical Exam Narrative: Awake and alert Nonfocal neuro exam Abdomen soft Bowel sound present Nontender abdomen at the bedside Hemodynamically stable Currently on room air Discharge Data Studies Completed and Pending Completed Studies During Hospitalization Category Date Time Status XR abdomen min 2V 12804 Stat Exams 05/25/22 10:28 Completed Pending at discharge Category Date Time Status XR KUB portable [id number] Routine Exams 05/26/22 07:43 Taken ABO/Rh Type Stat Lab 05/24/22 19:08 Results Complete Blood Count w/Auto AM LABS Lab 05/26/22 04:00 Ordered Complete Blood Count w/Auto AM LABS Lab 05/27/22 04:00 Uncollected Complete Crossmatch Stat Lab 05/24/22 19:08 Results Comprehensive Metabolic Panel AM LABS Lab 05/27/22 04:00 Ordered FFP [Frozen Plasma FZ <24 1st Cont] Routine Lab 05/24/22 19:08 Results Leukocyte Reduced RBC Stat Lab 05/24/22 19:08 Results Type and Screen Stat Lab 05/24/22 19:08 Results Radiology Impressions Abdomen X-Ray 05/25/22 10:28 Impression: Moderate generalized ileus. Laboratory Results WBC 10.7 10^3/uL (4.0-10.0) H 05/26/22 04:40 RBC 4.36 10^6/uL (4.1-5.3) 05/26/22 04:40 Hgb 13.0 g/dL (11.7-16.6) 05/26/22 04:40 Hct 40.3 % (42.0-52.0) L 05/26/22 04:40 MCV 92.4 fl (80-94) D 05/26/22 04:40 MCH 29.8 pg (28.0-34.0) 05/26/22 04:40 MCHC 32.3 g/dL (30.0-36.0) D 05/26/22 04:40 RDW 12.9 % (12.1-15.1) 05/26/22 04:40 Plt Count 322 10^3/cmm (130-400) 05/26/22 04:40 MPV 9.9 fL (7.4-10.4) 05/26/22 04:40 Neut % (Auto) 70.5 % 05/26/22 04:40 Lymph % (Auto) 19.1 % 05/26/22 04:40 [place] % (Auto) 8.5 % 05/26/22 04:40 Eos % (Auto) 0.7 % 05/26/22 04:40 Baso % (Auto) 0.7 % 05/26/22 04:40 Neut # (Auto) 7.52 10^3/uL (1.8-7.7) 05/26/22 04:40 Lymph # (Auto) 2.0 10^3/uL (0.8-4.8) 05/26/22 04:40 [place] # (Auto) 0.9 10^3/uL (0.2-0.9) 05/26/22 04:40 Eos # (Auto) 0.1 10^3/uL (0.0-0.8) 05/26/22 04:40 Baso # (Auto) 0.1 10^3/uL (0.0-0.1) 05/26/22 04:40 Nucleated RBC % (auto) 0 % 05/26/22 04:40 Nucleated RBCs # 0.0 /100WBC 05/26/22 04:40 PT 13.70 SECONDS (12.1-14.9) 05/24/22 19:08 INR 1.02 (0.8-1.2) 05/24/22 19:08 Sodium 138 mmol/L (136-145) 05/26/22 04:40 Potassium 3.7 mmol/L (3.5-5.1) 05/26/22 04:40 Chloride 104 mmol/L (98-107) 05/26/22 04:40 Carbon Dioxide 22 mmol/L (22-29) 05/26/22 04:40 Anion Gap 15.7 (5-19) 05/26/22 04:40 BUN 16 mg/dL (6-20) 05/26/22 04:40 Creatinine 0.8 mg/dL (0.7-1.2) 05/26/22 04:40 GFR Calculation 106.5 mL/min (90-130) 05/26/22 04:40 Glucose 95 mg/dL (65-115) 05/26/22 04:40 Calculated Osmolality 287 mOsm/kg (285-295) 05/26/22 04:40 Lactate 0.8 mmol/L (0.5-2.2) 05/26/22 06:59 Calcium 9.1 mg/dL (8.5-10.5) 05/26/22 04:40 Total Bilirubin 0.6 mg/dL (0.15-1.2) 05/26/22 04:40 AST 13 U/L (0-40) 05/26/22 04:40 ALT 10 U/L (0-41) 05/26/22 04:40 Alkaline Phosphatase 68 U/L (40-130) 05/26/22 04:40 Total Protein 6.7 g/dL (6.6-8.7) 05/26/22 04:40 Albumin 3.9 g/dL (3.5-5.2) 05/26/22 04:40 Globulin 2.8 g/dL (1.3-4.6) 05/26/22 04:40 Lipase 25 U/L (13-60) 05/24/22 19:08 Blood Type O Positive 05/24/22 19:08 Rho(D) Type Positive 05/24/22 19:08 Antibody Screen Negative 05/24/22 19:08 Crossmatch See Detail 05/24/22 19:08 Vitals Last Vital Signs Temp 98.3 F 05/26/22 07:35 Pulse 82 05/26/22 07:35 Resp 16 05/26/22 07:35 BP 115/67 05/26/22 07:35 Pulse Ox 96 05/26/22 07:35 O2 Del Method 05/26/22 07:35 Discharge Plan Discharge Patient Disposition: Home Condition: Stable Prescriptions: New omeprazole 20 mg capsule,delayed release(DR/EC) 20 mg PO BID 84 Days Qty: 168 0RF sucralfate 1 gram tablet 1 g PO BID 84 Days Qty: 168 0RF Discontinued Advil 200 mg Tablet 800 mg PO Q6H PRN (Reason: Pain) Excedrin Extra Strength 250-250-65 mg Tablet 1 tab PO Q6H PRN (Reason: Pain) No Action famotidine 20 mg Tablet 20 mg PO DAILY PRN (Reason: Acid Reflux) Claritin 10 mg Tablet 10 mg PO DAILY PRN (Reason: Allergy Symptoms) Discharge Orders: Discharge Order (Routine); Ordered 05/26/22 Ordered By: Mali Lee Patient Instructions: Sucralfate (By mouth), Omeprazole (By mouth), GI Bleeding, Opioid Safety Discharge Attestations Time Spent in Discharge Care*: less than 30 min Quality Metrics Clinical Quality Measures [ No reported AMI, CVA or VTE this stay] Coding Level of Care Code Acute Chg FW DC note Diagnoses EVERARDO (acute kidney injury) N17.9 Hemorrhagic shock R57.8 Headache R51.9 GI bleed K92.1 GI bleed type/associated pathology: melena
--- NOTE | 2022-05-26 09:54 | P.PN_ITS ---
Subjective Subjective: Discharge order was put on hold until general surgery evaluated the patient, Dr. Pope has recommended watching patient 1 more day Patient is tolerating diet, passing flatus, KUB unremarkable Hemodynamically stable Discontinue IV fluids H&H stable No tachycardia or signs of hypotension Vitals/I&O/Wt Last Vital Signs Temp 98.3 F 05/26/22 07:35 Pulse 82 05/26/22 07:35 Resp 16 05/26/22 07:35 BP 115/67 05/26/22 07:35 Pulse Ox 96 05/26/22 07:35 O2 Del Method 05/26/22 07:35 05/25/22 05/26/22 05/26/22 22:59 06:59 14:59 Intake Total 1663.333 / 3155.833 400 / 3555.833 360 / 360 Output Total 1100 / 2100 Balance 563.333 / 1055.833 400 / 1455.833 360 / 360 Weight last 48 hrs Weight 101.151 kg Weight 100.868 kg Weight 95.254 kg Physical Exam Narrative: Awake and alert Nonfocal neuro exam Abdomen soft Bowel sound present Nontender abdomen at the bedside Hemodynamically stable Currently on room air Data : 05/26/22 04:40 05/26/22 04:40 A&P Assessment and plan (1) EVERARDO (acute kidney injury): (2) Hemorrhagic shock: (3) Headache: (4) GI bleed: Qualifiers: GI bleed type/associated pathology: melena Qualified Code(s): K92.1 - Melena Plan Upper GI bleed related to duodenal ulcer H. 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
--- NOTE | 2022-05-26 10:04 | ECG_ITS ---
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 Measurements Intervals [place] Rate: 91 P: 4 CT: 141 QRS: 65 QRSD: 92 T: 30 QT: 353 QTc: 436 Interpretive Statements SINUS RHYTHM Compared to ECG 05/24/2022 19:08:04 No significant changes Electronically Signed On 05-27-2022 15:23:08 FILTER FILLER by Sina Pritchett M.D. [email or web address]
--- NOTE | 2022-05-26 10:15 | USCV_ITS ---
Nguyễn Adrian Age: 41 Gender: M : 1980 Exam Date: 05/26/2022 10:31 Ordering Phys: Mali Lee MD Technologist: [place] [facility] [place]: [place] Risk Factors: Previous Vascular Surgery: Right Brachial BP: / Left Brachial BP: / Right Left Velocity (cm/s) Spectral Plaque Velocity (cm/s) Spectral Plaque Syst/Diast Broadening Syst/Diast Broadening 113.60/28.70 Prox CCA 108.60/ 29.00 110.30/32.00 Mid CCA 95.30 / 24.60 93.70/ 26.30 Distal CCA 108.10/ 26.50 78.60/ 25.60 Prox ICA 69.10 / 25.30 77.30/ 26.20 Mid ICA 79.80 / 34.30 78.70/ 37.40 Distal ICA 84.00 / 31.70 135.50 ECA 116.65 0.69 ICA/CCA 0.77 Antegrade Vertebral Antegrade 39.00/ 16.80 cm/s 49.60/ 18.20 cm/s Tri Subclavian Tri 76.90 111.3 5 FINDINGS Comparison: none available. No significant elevation of systolic or diastolic velocities. Waveforms are normal. Mild, diffuse bilateral scattered calcified plaque and intimal thickening throughout the common carotid arteries and extending through the bifurcation. Antegrade vertebral arteries. CONCLUSIONS Bilateral ICA stenosis less than 50%. Mild carotid atherosclerosis. Dr. Marcela Infante DO (Electronically Signed) Final Date: 26 May 2022 11:46 S
[2022-05-26] MEDS: lidocaine 2% viscous 15 ML, aluminum-mag hydrox-simethicon 30 ML, sucralfate oral liq 1 GM PO (10:23)
[2022-05-26] MEDS: morphine 4 mg/mL SDV 1 mL 2 MG IVP (10:24)
--- NOTE | 2022-05-26 10:37 | P.PN_ITS ---
Subjective Subjective: The patient feels better overall. He is more awake today. Abdominal pain continues to improve, currently is about 4/10 in the epigastrium. He tolerated clear liquid diet well without any nausea. Hemoglobin remains stable. Vitals/I&O/Wt Last Vital Signs Temp 98.3 F 05/26/22 07:35 Pulse 82 05/26/22 07:35 Resp 16 05/26/22 10:24 BP 115/67 05/26/22 07:35 Pulse Ox 96 05/26/22 07:35 O2 Del Method 05/26/22 07:35 05/25/22 05/26/22 05/26/22 22:59 06:59 14:59 Intake Total 1663.333 / 3155.833 400 / 3555.833 360 / 360 Output Total 1100 / 2100 Balance 563.333 / 1055.833 400 / 1455.833 360 / 360 Weight last 48 hrs Weight 223 lb Weight 222 lb 6 oz Weight 210 lb Physical Exam Narrative: General: No acute distress Psych: AAOx3 Eyes: Sclerae are white Head/ENT: Normocephalic, symmetric CV: Regular pulse,, no JVD Lungs: Symmetrical chest rise Abdomen: Soft, ND, minimal tenderness to palpation in the upper epigastrium, improved compared to yesterday no peritoneal signs. No palpable masses. No hernias. Ext: No obvious traumatic deformities Skin: warm Data : 05/26/22 04:40 05/26/22 04:40 A&P Assessment and plan (1) GI bleed: Qualifiers: GI bleed type/associated pathology: melena Qualified Code(s): K92.1 - Melena (2) Headache: (3) Hemorrhagic shock: Plan Advance to soft mechanical diet. Continue Protonix and Carafate. Recheck CBC tomorrow a.m. If hemoglobin remains stable, it is okay to discharge him home. His abdominal pain is most likely related to deep ulcer, expect this to improve with healing of the ulcer He should have repeat endoscopy in 1 month to document healing of the ulcer and perform biopsies to evaluate for H. pylori. Work-up of his chronic headaches per primary team. 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
[2022-05-26 11:04] LABS: D Dimer 0.35 ug/mIFEU (0-0.59)
[2022-05-26 11:08] LABS: Troponin T (5th) Once 7 ng/L (0-15)
[2022-05-26 16:25] LABS: Amphetamines Screen Urine Negative (Negative); Barbiturates Screen Urine Negative (Negative); Benzodiazepines Screen Urine Negative (Negative); Cocaine Screen Urine Negative (Negative); Opiate Screen Urine Positive (Negative); PCP Screen Urine Negative (Negative); THC Screen Urine Negative (Negative)
[2022-05-26 20:54] LABS: Basophils # 0.1 10^3/uL (0.0-0.1); Basophils % 0.8 %; Eosinophils # 0.2 10^3/uL (0.0-0.8); Hematocrit 39.1 % (42.0-52.0); Lymphocytes # 2.1 10^3/uL (0.8-4.8); Lymphocytes % 24.2 %; Mean Corpuscular HGB Conc 33.2 g/dL (30.0-36.0); Mean Corpuscular Volume 90.3 fl (80-94); Mean Platelet Volume 9.5 fL (7.4-10.4); Monocytes % 10.9 %; Neutrophils # 5.42 10^3/uL (1.8-7.7); Neutrophils % 61.3 %; Nucleated Red Blood Cells % 0 %; Platelet Count 301 10^3/cmm (130-400); Red Blood Count 4.33 10^6/uL (4.1-5.3); Red Cell Distribution Width 12.8 % (12.1-15.1); White Blood Count 8.8 10^3/uL (4.0-10.0)
[2022-05-27] VITALS: BP 122/71; PULSE 81; RESP 17; TEMP 36.4; O2SAT 96
[2022-05-27] MEDS: pantoprazole 40 mg SDV IVP (00:53)
[2022-05-27 03:59] VITALS: BP 119/79; PULSE 84; RESP 17; TEMP 36.7; O2SAT 97
[2022-05-27] MEDS: sucralfate 1 gm/10 mL Oral Liq UDC PO (04:47)
[2022-05-27 06:13] LABS: Alanine Aminotransferase 18 U/L (0-41); Albumin Level 4.1 g/dL (3.5-5.2); Alkaline Phosphatase 79 U/L (40-130); Aspartate Amino Transferase 22 U/L (0-40); Blood Urea Nitrogen 15 mg/dL (6-20); Calcium 8.8 mg/dL (8.5-10.5); Carbon Dioxide 23 mmol/L (22-29); Chloride 98 mmol/L (98-107); Globulin 2.9 g/dL (1.3-4.6); Glomerular Filtration Rate 124.3 mL/min (90-130); Glucose 98 mg/dL (65-115); Osmolality Calculated 275 mOsm/kg (285-295); Sodium 132 mmol/L (136-145); Total Bilirubin 0.8 mg/dL (0.15-1.2)
[2022-05-27] MEDS: TRAMadol 50 mg Tablet 100 MG PO (07:28)
[2022-05-27 07:30] VITALS: BP 119/73; PULSE 91; RESP 18; TEMP 36.7; O2SAT 96
--- NOTE | 2022-05-27 09:48 | PM.PN ---
Subjective Subjective: Patient overall seems to be doing well and denies any complaints. Tolerating p.o. intake and adequate urine output. No evidence of bleeding and stable H&H Medications: Reviewed: Yes Vitals/I&O/Wt Last Vital Signs Temp 98.1 F 05/27/22 07:30 Pulse 91 05/27/22 07:30 Resp 18 05/27/22 07:30 BP 119/73 05/27/22 07:30 Pulse Ox 96 05/27/22 07:30 O2 Del Method 05/27/22 07:30 05/26/22 05/27/22 05/27/22 22:59 06:59 14:59 Intake Total 950 / 1310 Balance 950 / 1310 Weight last 48 hrs Weight 223 lb Physical Exam Const: COMMON NORMALS: no acute distress and patient oriented x3 GENERAL APPEARANCE: cooperative ORIENTATION/CONSCIOUSNESS: Yes awake, Yes oriented to person, Yes oriented to place and Yes oriented to time HENMT: COMMON NORMALS: normocephalic HEAD & SCALP: normocephalic Eye: COMMON NORMALS: Equal, round and reactive pupils present and no scleral icterus PUPIL: Yes Equal, round and reactive pupils present Lymph: LYMPHATIC: no lymphadenopathy noted Chest: COMMONS NORMALS: normal inspection of the chest Resp: COMMON NORMALS: normal respiratory effort and clear to auscultation bilaterally AUSCULTATION: clear to auscultation bilaterally Cardio: COMMON NORMALS: S1 normal heart sound present and S2 normal heart sound present; negative for No murmurs present (Cardio) HEART SOUNDS: S1 normal heart sound present and S2 normal heart sound present GI: COMMON NORMALS: Soft to palpation; negative for No hepatosplenomegaly present INSPECTION: Yes normal to inspection PALPATION: Yes Soft to palpation, No Firmness to palpation present (GI), No Tenderness to palpation present (GI), No Guarding due to palpation present (GI), No Rigid due to palpation and No No hepatosplenomegaly present Neuro: COMMON NORMALS: patient oriented x3 SENSORIUM/ORIENTATION: Yes oriented to person, Yes oriented to place and Yes oriented to time Psych: COMMON NORMALS: mental status grossly normal Skin: COMMON NORMALS: no rashes or lesions noted GENERAL SKIN EXAM: no rashes or lesions noted Data : 05/26/22 20:44 05/27/22 04:24 A&P Assessment and plan (1) Duodenal ulcer: Assessment 41 years old gentleman with a bleeding duodenal ulcer that required EGD on 05/24/[address]Raman Aparicio [facility] surgeon. Plan Raise the head of the bed 4-6 inches Frequent small meals through the day Avoid smoking or Chewing Tobacco Avoid excess coffee, tea, and other caffeinated beverages Avoid garments that fit tightly through the abdomen Avoid eating before going to sleep Avoid nonsteroidal anti-inflammatory drugs (NSAIDs) when possible Anti-reflux diet Anti-reflux medications as prescribed and Carafate p.o. intake 1 g every 8 hours Emphasis on weight management Return to surgery office in 2 weeks to arrange for repeat EGD in 6 to 8 weeks. 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
--- NOTE | 2022-05-27 10:35 | P.DS_ITS ---
Discharge Providers Date of Admission: 05/24/22 22:26 Date of Discharge: May 27, 2022 Attending Provider at Admission: Vikas Aparicio MD Attending Provider at Discharge: Mali Lee MD Diagnoses at Discharge Discharge Diagnosis (1) Duodenal ulcer: Status: Acute Reason for Visit Reason for Visit: vomiting blood and syncope Hospital Course Hospital Course Patient presented after experiencing an syncopal event with a 1 episode of hematemesis. His hemoglobin remained stable throughout hospitalization he remained hemodynamically stable. General surgery was consulted for endoscopy. EGD revealed large ulcer in pyloric channel 2 x 1 cm by half centimeter deep with fresh blood clot over it epinephrine was injected and then 2 clips were applied. Anoscopy patient was complaining of abdominal pain which was related to gas inflation during endoscopy. KUB did show ileus however it resolved he is tolerating his diet passing gas. He will get 12 weeks of Protonix and sucralfate he was counseled not to take aspirin, Excedrin. H. pylori biopsy has been taken we will follow-up with the results. Etiology is use of NSAIDs. 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 does endorse that he snores a lot, I requested him to follow-up with the PCP for sleep study Echo unremarkable, carotid Doppler unremarkable He was discharged on 05/26 however surgery recommended watching him 1 more day No overnight events H&H is stable he is hemodynamically stable Physical Exam Narrative: Awake and alert No nfocal neuro exam Abdomen soft Bowel sound present Non tender abdomen Wif e at the bedside H emodynamically sta ble Currently on r oom air Discharge Data Studies Completed and Pending Completed Studies During Hospitalization Category Date Time Status XR KUB portable [id number] Routine Exams 05/26/22 07:43 Completed XR abdomen min 2V [id number] Stat Exams 05/25/22 10:28 Completed CV carotid duplex BI* [id number] Routine Ultrasound 05/26/22 10:15 Completed CV. echo complete* [id number] Stat Ultrasound 05/26/22 Completed Pending at discharge Category Date Time Status ABO/Rh Type Stat Lab 05/24/22 19:08 Results Complete Crossmatch Stat Lab 05/24/22 19:08 Results FFP [Frozen Plasma FZ <24 1st Cont] Routine Lab 05/24/22 19:08 Results Leukocyte Reduced RBC Stat Lab 05/24/22 19:08 Results Type and Screen Stat Lab 05/24/22 19:08 Results Radiology Impressions Abdomen X-Ray 05/25/22 10:28 Impression: Moderate generalized ileus. KUB X-Ray 05/26/22 07:43 IMPRESSION: No acute findings. Laboratory Results WBC 8.8 10^3/uL (4.0-10.0) 05/26/22 20:44 RBC 4.33 10^6/uL (4.1-5.3) 05/26/22 20:44 Hgb 13.0 g/dL (11.7-16.6) 05/26/22 20:44 Hct 39.1 % (42.0-52.0) L 05/26/22 20:44 MCV 90.3 fl (80-94) 05/26/22 20:44 MCH 30.0 pg (28.0-34.0) 05/26/22 20:44 MCHC 33.2 g/dL (30.0-36.0) 05/26/22 20:44 RDW 12.8 % (12.1-15.1) 05/26/22 20:44 Plt Count 301 10^3/cmm (130-400) 05/26/22 20:44 MPV 9.5 fL (7.4-10.4) 05/26/22 20:44 Neut % (Auto) 61.3 % 05/26/22 20:44 Lymph % (Auto) 24.2 % 05/26/22 20:44 [place] % (Auto) 10.9 % 05/26/22 20:44 Eos % (Auto) 2.0 % 05/26/22 20:44 Baso % (Auto) 0.8 % 05/26/22 20:44 Neut # (Auto) 5.42 10^3/uL (1.8-7.7) 05/26/22 20:44 Lymph # (Auto) 2.1 10^3/uL (0.8-4.8) 05/26/22 20:44 [place] # (Auto) 1.0 10^3/uL (0.2-0.9) H 05/26/22 20:44 Eos # (Auto) 0.2 10^3/uL (0.0-0.8) 05/26/22 20:44 Baso # (Auto) 0.1 10^3/uL (0.0-0.1) 05/26/22 20:44 Nucleated RBC % (auto) 0 % 05/26/22 20:44 Nucleated RBCs # 0.0 /100WBC 05/26/22 20:44 PT 13.70 SECONDS (12.1-14.9) 05/24/22 19:08 INR 1.02 (0.8-1.2) 05/24/22 19:08 D-Dimer 0.35 ug/mIFEU (0-0.59) 05/26/22 10:40 Sodium 132 mmol/L (136-145) L 05/27/22 04:24 Potassium 4.0 mmol/L (3.5-5.1) 05/27/22 04:24 Chloride 98 mmol/L (98-107) 05/27/22 04:24 Carbon Dioxide 23 mmol/L (22-29) 05/27/22 04:24 Anion Gap 15.0 (5-19) 05/27/22 04:24 BUN 15 mg/dL (6-20) 05/27/22 04:24 Creatinine 0.7 mg/dL (0.7-1.2) 05/27/22 04:24 GFR Calculation 124.3 mL/min (90-130) 05/27/22 04:24 Glucose 98 mg/dL (65-115) 05/27/22 04:24 Calculated Osmolality 275 mOsm/kg (285-295) L 05/27/22 04:24 Lactate 0.8 mmol/L (0.5-2.2) 05/26/22 06:59 Calcium 8.8 mg/dL (8.5-10.5) 05/27/22 04:24 Total Bilirubin 0.8 mg/dL (0.15-1.2) 05/27/22 04:24 AST 22 U/L (0-40) 05/27/22 04:24 ALT 18 U/L (0-41) 05/27/22 04:24 Alkaline Phosphatase 79 U/L (40-130) 05/27/22 04:24 Troponin T Gen 5 ng/L 7 ng/L (0-15) 05/26/22 10:40 Total Protein 7.0 g/dL (6.6-8.7) 05/27/22 04:24 Albumin 4.1 g/dL (3.5-5.2) 05/27/22 04:24 Globulin 2.9 g/dL (1.3-4.6) 05/27/22 04:24 Lipase 25 U/L (13-60) 05/24/22 19:08 Urine Opiates Screen Positive ng/mL (Negative) H 05/26/22 16:00 Ur Barbiturates Screen Negative ng/mL (Negative) 05/26/22 16:00 Ur Phencyclidine Scrn Negative ng/mL (Negative) 05/26/22 16:00 Ur Amphetamines Screen Negative ng/mL (Negative) 05/26/22 16:00 U Benzodiazepines Scrn Negative ng/mL (Negative) 05/26/22 16:00 Urine Cocaine Screen Negative ng/mL (Negative) 05/26/22 16:00 U Marijuana (THC) Screen Negative ng/mL (Negative) 05/26/22 16:00 Blood Type O Positive 05/24/22 19:08 Rho(D) Type Positive 05/24/22 19:08 Antibody Screen Negative 05/24/22 19:08 Crossmatch See Detail 05/24/22 19:08 Vitals Last Vital Signs Temp 98.1 F 05/27/22 07:30 Pulse 91 05/27/22 07:30 Resp 18 05/27/22 07:30 BP 119/73 05/27/22 07:30 Pulse Ox 96 05/27/22 07:30 O2 Del Method 05/27/22 07:30 Discharge Plan Discharge Patient Disposition: Home Condition: Stable Prescriptions: New omeprazole 20 mg capsule,delayed release(DR/EC) 20 mg PO BID 84 Days Qty: 168 0RF sucralfate 1 gram tablet 1 g PO BID 84 Days Qty: 168 0RF Continued famotidine 20 mg Tablet 20 mg PO DAILY PRN (Reason: Acid Reflux) Claritin 10 mg Tablet 10 mg PO DAILY PRN (Reason: Allergy Symptoms) Discontinued ibuprofen [Advil] 200 mg Tablet 800 mg PO Q6H PRN (Reason: Pain) Excedrin Extra Strength 250-250-65 mg Tablet 1 tab PO Q6H PRN (Reason: Pain) Discharge Orders: Discharge Order (Routine); Ordered 05/27/22 Ordered By: Mali Lee Referrals: Vincent Bucio MD [Physician] - 2 weeks (Return to surgery office in 2 to 3- week) Luiza Hilario FNP [Referring] - (Please call Sunday and schedule a follow up with Luiza.) Discharge Diet: As Directed Discharge Activity: Increase activity as tolerated Patient Instructions: Sucralfate (By mouth), Omeprazole (By mouth), GI Bleeding, Peptic Ulcer (DC), Diet for Stomach Ulcers and Gastritis (GEN), Safe Use of NSAIDs (GEN), Opioid Safety Activity Restrictions/Additional Instructions: Raise the head of the bed 4-6 inches Frequent small meals through the day Avoid smoking or Chewing Tobacco Avoid excess coffee, tea, and other caffeinated beverages Avoid garments that fit tightly through the abdomen Avoid eating before going to sleep Avoid nonsteroidal anti-inflammatory drugs (NSAIDs) when possible Anti-reflux diet Anti-reflux medications as prescribed Emphasis on weight management Discharge Attestations Time Spent in Discharge Care*: less than 30 min Quality Metrics Clinical Quality Measures [ No reported AMI, CVA or VTE this stay] Coding Level of Care Code Acute Chg FW DC note Diagnoses Duodenal ulcer K26.9
== END 2022-05-27 11:38 | disposition home or self-care (01) | DRG 377 ==
LOC: ER 19:28 → GILAB 19:29 → ICU 22:26 → MEDSURG 05-25 15:07
PROVIDERS: Internal Medicine; Admitting Provider Surgery; Emergency Provider Emergency Medicine; Visit Provider Internal Medicine
PROC: 0DJ08ZZ Inspection of Upper Intestinal Tract, Via Natural or Artificial Opening Endoscopic (ICD-10-PCS; CPT 43235; principal; 2022-05-24 08:30)
DX: K26.4 Chronic or unspecified duodenal ulcer with hemorrhage (principal); R57.8 Other shock; N17.9 Acute kidney failure, unspecified; K56.7 Ileus, unspecified; T39.315A Adverse effect of propionic acid derivatives, initial encounter; I95.9 Hypotension, unspecified; F17.210 Nicotine dependence, cigarettes, uncomplicated; R59.1 Generalized enlarged lymph nodes
CPT/HCPCS: 12345; 36415; 43255; 74018; 74019; 80053; 80306; 83605; 83690; 84484; 85014; 85018; 85025; 85378; 85610; 86850; 86900; 86920; 93005; 93306; 93880; 96365; 96366; 96375; 99285; 99291; C9113; J0131; J0171; J0330; J2270; J2704; J3010; J3490; J7030; J7120; P9016

== ENCOUNTER 2022-06-19 16:00 | Outpatient (CLI) | payer OTHER, SELFPAY | END 2022-06-19 16:01 | disposition home or self-care (01) | LOC: SLEEP 06-20 07:39 | PROVIDERS: Visit Provider Nurse Practitioner Family | DX: G47.10 Hypersomnia, unspecified (principal) | CPT/HCPCS: G0399 ==

== ENCOUNTER → 2022-06-22 10:56 | Outpatient (BNVA) | payer OTHER, SELFPAY | PROVIDERS: Visit Provider Nurse Practitioner Family | DX: M54.2 Cervicalgia (principal) | CPT/HCPCS: 72050 ==

== ENCOUNTER 2023-02-09 06:00 | Outpatient (RCR) | payer OTHER, SELFPAY | END 2023-02-12 23:59 | disposition home or self-care (01) | LOC: TPT 06:00 | PROVIDERS: PCP Nurse Practitioner Family; Visit Provider Nurse Practitioner Family | DX: M48.02 Spinal stenosis, cervical region (principal) | CPT/HCPCS: 97161 ==

== ENCOUNTER 2023-02-19 06:00 | Outpatient (RCR) | payer OTHER, SELFPAY | END 2023-03-15 23:59 | disposition home or self-care (01) | LOC: TPT 06:00 | PROVIDERS: PCP Nurse Practitioner Family; Visit Provider Nurse Practitioner Family | DX: M48.02 Spinal stenosis, cervical region (principal) | CPT/HCPCS: 97110; 97140 ==

== ENCOUNTER 2024-06-02 14:27 | Outpatient (CLI) | payer OTHER, SELFPAY ==
--- NOTE | 2024-06-02 14:33 | XR_ITS ---
WS: [id number] Exam: XR shoulder RT min 2V* [id number] Date/Time of Exam: 06/02/2024 2:50 PM Reason For Exam: R SHOULDER JOINT PAIN No acute fracture. Degenerative change at the AC joint. The glenohumeral joint is preserved. Normal s oft tissues. XR/XR shoulder RT min 2V* [id number] IMPRESSION: 1. AC joint DJD.
== END 2024-06-02 14:28 | disposition home or self-care (01) ==
PROVIDERS: PCP Nurse Practitioner Family; Visit Provider Nurse Practitioner Family
DX: M19.011 Primary osteoarthritis, right shoulder (principal)
CPT/HCPCS: 73030